=== PATIENT | male | born 1960 | race Caucasian/White ===

== ENCOUNTER 2022-03-19 15:39 | Emergency (ER) | payer OTHER ==
[~2022-03-19] VITALS: Ht 165.1 cm; Wt 102.3 kg
[2022-03-19] MEDS ORDERED: SODIUM CHLORIDE 0.9% 1,000 ML IV ONE (17:00)
[2022-03-19 17:06] LABS: BASOPHILS % (AUTO) 0.5 % (0.0-2.0); EOSINOPHILS % (AUTO) 2.2 % (1.0-6.0); HEMOGLOBIN 14.2 g/dL (13.5-17.5); LYMPHOCYTES # (AUTO) 2.5 K/uL (1.0-4.8); LYMPHOCYTES % (AUTO) 27.5 % (22.0-44.0); MEAN CORPUSCULAR HEMOGLOBIN 27.4 pg (26.0-34.0); MEAN CORPUSCULAR HGB CONC 34.6 G/dL (31.0-37.0); MEAN CORPUSCULAR VOLUME 79 fL (80-100); MONOCYTES # (AUTO) 0.5 K/uL (0.1-1.0); MONOCYTES % (AUTO) 5.9 % (2.0-9.0); NEUTROPHILS # (AUTO) 5.7 K/uL (1.8-7.7); NEUTROPHILS % (AUTO) 63.9 % (40.0-70.0); PLATELET COUNT (AUTO) 183 K/uL (150-450); RED BLOOD CELL COUNT(AUTO) 5.17 MIL/uL (4.50-5.90); RED CELL DISTRIBUTION WIDTH 14.3 % (11.5-14.5)
[2022-03-19 17:47] LABS: BILIRUBIN,TOTAL 0.4 mg/dL (0.1-1.0); CALCIUM, TOTAL 9.3 mg/dL (8.8-10.5); CARBON DIOXIDE 25 mmol/L (22-29); CREATININE 0.86 mg/dL (0.60-1.30); GLOMERULAR FILTR. RATE CALC > 60 mL/min (>60); GLUCOSE,RANDOM 293 mg/dL (70-110); UREA NITROGEN, BLOOD 15 mg/dL (7-18)
[2022-03-19 17:48] LABS: ALANINE AMINOTRANSFERASE 23 U/L (12-78); ALBUMIN 3.8 g/dL (3.4-5.0); ALKALINE PHOSPHATASE 74 U/L (46-116); ASPARTATE AMINOTRANSFERASE 18 U/L (15-37); TOTAL PROTEIN, SERUM 7.6 g/dL (6.4-8.2)
[2022-03-19 17:52] LABS: ANION GAP 7 mmol/L (8-16); CHLORIDE 96 mmol/L (98-107); POTASSIUM 4.1 mmol/L (3.5-5.1); SODIUM SERUM 128 mmol/L (136-145)
[2022-03-19] MEDS ORDERED: EZET10TA57 PO (18:24)
[2022-03-19] MEDS ORDERED: PRAV40TA4 PO ×2 (18:24→19:24)
[2022-03-19] MEDS ORDERED: LISI-893 PO ×2 (18:24→19:24)
[2022-03-19] MEDS ORDERED: TAMS-13 PO (18:24)
[2022-03-19] MEDS ORDERED: PANT-31 PO (18:24)
[2022-03-19] MEDS ORDERED: GLIP10TA10 PO ×2 (18:24→19:24)
[2022-03-19] MEDS ORDERED: METF-1211 PO ×2 (18:24→19:24)
[2022-03-19] MEDS ORDERED: INSLAN SQ (18:24)
[2022-03-19] MEDS ORDERED: ARIP2TAB27 PO ×2 (18:24→19:24)
[2022-03-19 18:31] LABS: GLUCOSE,POINT OF CARE 244 MG/DL (70-110)
[2022-03-19 18:32] VITALS: BP 125/86
[2022-03-19] MEDS ORDERED: OMEG-189 PO ×2 (18:39→19:24)
[2022-03-19] MEDS ORDERED: DULA1.5P SQ (18:39)
[2022-03-19] MEDS ORDERED: MetFORMIN HCL 500 MG ER TABLET PO ONE (18:45)
[2022-03-19] MEDS ORDERED: INSULIN REGULAR, HUMAN 100 UNITS/ML IVP ONE (18:45)
[2022-03-19 19:28] LABS: APPEARANCE,URINE CLEAR (CLEAR); PH,URINE 5.5 (5.0-8.0); SPECIFIC GRAVITIY, URINE 1.015 (1.003-1.030)
[2022-03-19 19:29] LABS: GLUCOSE, URINE (UA) >1000 mg/dL (NEGATIVE); OCCULT BLOOD,URINE NEGATIVE (NEGATIVE); PROTEIN,URINE NEGATIVE (NEGATIVE)
[2022-03-19 19:30] LABS: BILIRUBIN,URINE NEGATIVE (NEGATIVE); KETONES,URINE NEGATIVE (NEGATIVE); LEUKOCYTE ESTERASE ,URINE NEGATIVE (NEGATIVE); NITRATE,URINE NEGATIVE (NEGATIVE); UROBILINOGEN,URINE <=1.0 mg/dL (<=1.0)
== END 2022-03-19 20:08 | disposition home or self-care (01) ==
LOC: EMS 15:53
DX: E11.65 Type 2 diabetes mellitus with hyperglycemia (principal); F32.A Depression, unspecified; E78.00 Pure hypercholesterolemia, unspecified; I10 Essential (primary) hypertension; Z86.59 Personal history of other mental and behavioral disorders; Z88.0 Allergy status to penicillin
CPT/HCPCS: 99284; 96374; 96361; 80053; 81003; 82962; 85025; 36415; J1815; J7030